=== PATIENT | female | born 1985 | race African-American/Black ===

== ENCOUNTER 2020-11-06 12:08 | Inpatient (IN) | payer MEDICAID, OTHER ==
[~2020-11-06] VITALS: Ht 165.1 cm; Wt 58.4 kg
[2020-11-06 13:29] LABS: Basophils # (auto) 0 10 ^3/uL (0-0.2); Basophils % (auto) 0.6 % (0.0-2.0); Eosinophils # (auto) 0 10 ^3/uL (0-0.8); Hematocrit 23.9 % (36.0-46.0); Hemoglobin 7.8 g/dL (12.2-16.2); Lymphocytes # (auto) 0.7 10 ^3/uL (0.4-5.4); Lymphocytes % (auto) 19.4 % (10.0-50.0); Mean Corpuscular Hemoglobin 32.9 pg (28.0-32.0); Mean Corpuscular Hgb Conc. 32.7 g/dL (32.0-36.0); Mean Corpuscular Volume 100.5 fL (80.0-100.0); Monocytes # (auto) 0.2 10 ^3/uL (0-1.3); Monocytes % (auto) 5.1 % (0.0-12.0); Neutrophils # (auto) 2.8 10 ^3/uL (1.6-8.6); Neutrophils % (auto) 73.9 % (37.0-80.0); Red Blood Cells 2.38 10^6/uL (4.0-5.20); White Blood Cell 3.8 10^3/uL (4.4-10.8)
[2020-11-06 13:45] LABS: Albumin 2.9 g/dL (3.4-5.0); Calcium 7.9 mg/dL (8.5-10.1); Magnesium 2.5 mg/dL (1.6-2.6); Potassium 3.8 mmol/L (3.5-5.1)
[2020-11-06 13:49] LABS: BUN/Creatinine Ratio 8.5; Bilirubin, Total 0.6 mg/dL (0.2-1.0); Total Protein 7.2 g/dL (6.4-8.2)
[2020-11-06] MEDS ORDERED: FUROSEMIDE 40 MG/4 ML VIAL IV ONE (14:45)
[2020-11-06] MEDS ORDERED: NITROGLYCERIN 0.4 MG SL TAB SL PRN (15:15)
[2020-11-06] MEDS ORDERED: MORPHINE SULFATE INJECTION 2 MG/ML SYRG IV PRN (15:15)
[2020-11-06] MEDS ORDERED: LORazepam 2MG/ML-1ML VIAL ONE (17:51)
[2020-11-06] MEDS ORDERED: ONDANSETRON HCL 4 MG/2 ML VIAL IV ONE (18:30)
[2020-11-06] MEDS ORDERED: MORPHINE SULFATE 4 MG/ML SYR/VIAL IV ONE (18:30)
[2020-11-06] MEDS ORDERED: ASPirin-EC 325mg tab PO ONE (18:30)
[2020-11-06] MEDS: MORPHINE SULFATE INJECTION 2 MG/ML SYRG IV PRN (23:07)
[2020-11-07] VITALS (7 sets, daily range): BP systolic 158–184; BP diastolic 78–97
[2020-11-07] MEDS: MORPHINE SULFATE INJECTION 2 MG/ML SYRG IV PRN ×3 (03:34→21:15)
[2020-11-07 07:09] LABS: Basophils # (auto) 0 10 ^3/uL (0-0.2); Basophils % (auto) 0.4 % (0.0-2.0); Eosinophils # (auto) 0.1 10 ^3/uL (0-0.8); Eosinophils % (auto) 1.9 % (0.0-7.0); Hematocrit 22.5 % (36.0-46.0); Hemoglobin 7.6 g/dL (12.2-16.2); Lymphocytes # (auto) 1.1 10 ^3/uL (0.4-5.4); Lymphocytes % (auto) 38.5 % (10.0-50.0); Mean Corpuscular Hemoglobin 34.3 pg (28.0-32.0); Mean Corpuscular Volume 100.7 fL (80.0-100.0); Monocytes # (auto) 0.2 10 ^3/uL (0-1.3); Neutrophils # (auto) 1.4 10 ^3/uL (1.6-8.6); Neutrophils % (auto) 50.2 % (37.0-80.0); Nucleated Red Blood Cells % 0.1 %; Red Blood Cells 2.23 10^6/uL (4.0-5.20); Red Cell Distribution Width 13.9 % (11.8-14.3); White Blood Cell 2.8 10^3/uL (4.4-10.8)
[2020-11-07 07:17] LABS: Potassium 3.8 mmol/L (3.5-5.1)
[2020-11-07 07:26] LABS: Albumin 2.9 g/dL (3.4-5.0); BUN/Creatinine Ratio 9.5; Bilirubin, Total 0.5 mg/dL (0.2-1.0); Calcium 8.5 mg/dL (8.5-10.1)
[2020-11-07] MEDS: ONDANSETRON HCL 4 MG/2 ML VIAL IV PRN ×2 (10:47→21:50)
[2020-11-07] MEDS: hydrALAZINE HCL 20 MG/ML VL IV PRN ×2 (12:15→21:54)
[2020-11-07] MEDS ORDERED: CLON0.1T PO (13:01)
[2020-11-07] MEDS ORDERED: LISI-716 PO (13:01)
[2020-11-07] MEDS ORDERED: NIFE1TAB30 PO (13:01)
[2020-11-07] MEDS ORDERED: CARV6.2551 PO (13:01)
[2020-11-07] MEDS ORDERED: INSU1INJ19 SC (13:01)
[2020-11-07] MEDS ORDERED: CYCL-839 PO (13:01)
[2020-11-07] MEDS ORDERED: ONDA-144 PO (13:01)
[2020-11-07] MEDS ORDERED: FURO20TA3 PO (13:02)
[2020-11-07] MEDS ORDERED: CLOP75TA70 PO (13:02)
[2020-11-07] MEDS ORDERED: DICY20TA PO (13:02)
[2020-11-07] MEDS ORDERED: METO-158 PO (13:02)
[2020-11-07] MEDS ORDERED: PHE100C PO (13:02)
[2020-11-07] MEDS ORDERED: DIPH-599 PO (13:02)
[2020-11-07] MEDS ORDERED: METO10TA3 PO (13:02)
[2020-11-07] MEDS ORDERED: SEVE800T8 PO (13:02)
[2020-11-07] MEDS ORDERED: ATOR20TA50 PO (13:02)
[2020-11-07] MEDS ORDERED: [UNRECOGNIZED DRUG - CODE] PO (13:02)
[2020-11-07] MEDS ORDERED: ONDANSETRON HCL 4 MG/2 ML VIAL IM ONE (13:15)
[2020-11-07] MEDS ORDERED: MORPHINE SULFATE 4 MG/ML SYR/VIAL IV ONE (13:15)
[2020-11-07] MEDS ORDERED: METOCLOPRAMIDE HCL 10 MG TAB PO PRN (13:30)
[2020-11-07] MEDS ORDERED: diphenhdrAMINE HCL 25 MG CAP PO PRN (13:30)
[2020-11-07] MEDS: HYOSCYAMINE SULF 0.125 MG ODT TAB PO PRN (13:40)
[2020-11-07] MEDS: LACTULOSE 20Gm/30ML SOLN PO PRN (13:41)
[2020-11-07] MEDS ORDERED: ONDANSETRON HCL 4 MG/2 ML VIAL IV ONE (13:45)
[2020-11-07] MEDS: cloNIDine HCL 0.1 MG TAB PO SCH ×2 (14:22→21:15)
[2020-11-07] MEDS ORDERED: ACCU-CHEK COMFORT CURVE STRIP VI ONE (17:00)
[2020-11-07] MEDS: HYDROcodone-ACET 10/325MG TAB PO PRN (17:28)
[2020-11-07] MEDS: PHENYTOIN SODIUM 100 MG CAP PO SCH (21:04)
[2020-11-07] MEDS: ATORVASTATIN 20 MG TAB PO SCH (21:04)
[2020-11-08 05:00] VITALS: BP 157/89
[2020-11-08] MEDS: ONDANSETRON HCL 4 MG/2 ML VIAL IV PRN ×5 (05:03→21:26)
[2020-11-08] MEDS: MORPHINE SULFATE INJECTION 2 MG/ML SYRG IV PRN ×5 (05:05→23:00)
[2020-11-08] MEDS: cloNIDine HCL 0.1 MG TAB PO SCH ×3 (05:06→21:40)
[2020-11-08 08:00] VITALS: BP 151/93
[2020-11-08] MEDS: PHENYTOIN SODIUM 100 MG CAP PO SCH ×2 (09:30→21:26)
[2020-11-08] MEDS: FUROSEMIDE 20 MG TAB PO SCH (09:30)
[2020-11-08] MEDS: LISINOPRIL 10 MG TAB PO SCH (09:31)
[2020-11-08] MEDS ORDERED: METOPROLOL TARTRATE 50 MG TAB PO SCH (10:00)
[2020-11-08] MEDS ORDERED: CLOPIDOGREL BISULFATE 75 MG TAB PO SCH (10:00)
[2020-11-08 10:03] LABS: Basophils # (auto) 0 10 ^3/uL (0-0.2); Eosinophils # (auto) 0.1 10 ^3/uL (0-0.8); Hematocrit 23.3 % (36.0-46.0); Hemoglobin 7.9 g/dL (12.2-16.2); Lymphocytes # (auto) 0.6 10 ^3/uL (0.4-5.4); Lymphocytes % (auto) 14.1 % (10.0-50.0); Mean Corpuscular Hemoglobin 34.4 pg (28.0-32.0); Mean Corpuscular Volume 100.9 fL (80.0-100.0); Monocytes # (auto) 0.3 10 ^3/uL (0-1.3); Neutrophils # (auto) 3.4 10 ^3/uL (1.6-8.6); Nucleated Red Blood Cells % 0.1 %; Red Blood Cells 2.31 10^6/uL (4.0-5.20); White Blood Cell 4.4 10^3/uL (4.4-10.8)
[2020-11-08 10:05] LABS: Basophils % (auto) 0.4 % (0.0-2.0); Eosinophils % (auto) 1.4 % (0.0-7.0); Mean Corpuscular Hgb Conc. 34.1 g/dL (32.0-36.0); Neutrophils % (auto) 77.1 % (37.0-80.0)
[2020-11-08 10:47] LABS: Albumin 3.1 g/dL (3.4-5.0); Calcium 8.3 mg/dL (8.5-10.1)
[2020-11-08 10:52] LABS: BUN/Creatinine Ratio 9.5; Bilirubin, Total 0.4 mg/dL (0.2-1.0); Total Protein 7.3 g/dL (6.4-8.2)
[2020-11-08 12:00] VITALS: BP 155/77
[2020-11-08] MEDS: LACTULOSE 20Gm/30ML SOLN PO PRN ×2 (14:07→22:07)
[2020-11-08] MEDS ORDERED: DEXTROSE (50%) 50ML SYRG IV ONE ×2 (15:30→16:00)
[2020-11-08 16:00] VITALS: BP 145/80
[2020-11-08] MEDS ORDERED: InsuLIN REG 1unit/0.01ml Soln (100units/ml) SC ONE (17:00)
[2020-11-08] MEDS ORDERED: ACCU-CHEK COMFORT CURVE STRIP VI ONE (17:00)
[2020-11-08] MEDS: PANTOPRAZOLE 40 MG/10 ML VIAL INJ IV SCH (21:25)
[2020-11-08] MEDS: ATORVASTATIN 20 MG TAB PO SCH (21:26)
[2020-11-08 21:58] VITALS: BP 163/85
[2020-11-08] MEDS: LORazepam 2MG/ML-1ML VIAL IV PRN (23:00)
[2020-11-08] MEDS ORDERED: LORazepam 2MG/ML-1ML VIAL ONE (23:09)
[2020-11-08 23:15] VITALS: BP 122/82
[2020-11-08] MEDS ORDERED: LORazepam 2MG/ML-1ML VIAL IV ONE (23:30)
[2020-11-09] MEDS ORDERED: PHENYTOIN IV DILANTIN 500 MG in SODIUM CHL 0.9% 100 ML IV ONE (00:45)
[2020-11-09] MEDS ORDERED: PHENYTOIN SODIUM 50 MG/ML 2ML VIAL IV ONE ×2 (01:13→01:15)
[2020-11-09 05:16] VITALS: BP 149/85
[2020-11-09] MEDS: cloNIDine HCL 0.1 MG TAB PO SCH ×3 (05:58→22:52)
[2020-11-09] MEDS: LACTULOSE 20Gm/30ML SOLN PO PRN (06:21)
[2020-11-09] MEDS: ONDANSETRON HCL 4 MG/2 ML VIAL IV PRN (08:19)
[2020-11-09 08:52] VITALS: BP 149/82
[2020-11-09] MEDS: PHENYTOIN SODIUM 100 MG CAP PO SCH (09:57)
[2020-11-09] MEDS: LISINOPRIL 10 MG TAB PO SCH (13:34)
[2020-11-09] MEDS: METOPROLOL TARTRATE 50 MG TAB PO SCH ×2 (13:35→22:58)
[2020-11-09] MEDS: FUROSEMIDE 20 MG TAB PO SCH (13:35)
[2020-11-09] MEDS: PANTOPRAZOLE 40 MG/10 ML VIAL INJ IV SCH ×3 (15:40→22:52)
[2020-11-09] MEDS: METOCLOPRAMIDE HCL 5MG/ml INJ 2ml VIAL IV SCH ×2 (16:54→22:52)
[2020-11-09] MEDS: HYOSCYAMINE SULF 0.125 MG ODT TAB PO PRN (16:55)
[2020-11-09] MEDS: hydrALAZINE HCL 20 MG/ML VL IV PRN (16:55)
[2020-11-09 17:00] VITALS: BP 193/100
[2020-11-09] MEDS: MORPHINE SULFATE INJECTION 2 MG/ML SYRG IV PRN (18:13)
[2020-11-09 22:00] VITALS: BP 188/96
[2020-11-09] MEDS: ATORVASTATIN 20 MG TAB PO SCH (22:52)
[2020-11-10] VITALS (8 sets, daily range): BP systolic 106–208; BP diastolic 58–108
[2020-11-10 05:57] LABS: Basophils # (auto) 0 10 ^3/uL (0-0.2); Basophils % (auto) 0.6 % (0.0-2.0); Eosinophils # (auto) 0.1 10 ^3/uL (0-0.8); Eosinophils % (auto) 1.6 % (0.0-7.0); Hematocrit 18.5 % (36.0-46.0); Lymphocytes # (auto) 0.7 10 ^3/uL (0.4-5.4); Monocytes # (auto) 0.4 10 ^3/uL (0-1.3); Neutrophils # (auto) 2.6 10 ^3/uL (1.6-8.6)
[2020-11-10 06:00] LABS: Mean Corpuscular Hgb Conc. 34.4 g/dL (32.0-36.0); Mean Corpuscular Volume 101.7 fL (80.0-100.0); Monocytes % (auto) 10.6 % (0.0-12.0); Neutrophils % (auto) 68.2 % (37.0-80.0); Nucleated Red Blood Cells % 0.3 %; Red Blood Cells 1.82 10^6/uL (4.0-5.20); Red Cell Distribution Width 13.8 % (11.8-14.3); White Blood Cell 3.8 10^3/uL (4.4-10.8)
[2020-11-10] MEDS: cloNIDine HCL 0.1 MG TAB PO SCH ×3 (06:01→23:39)
[2020-11-10] MEDS: METOCLOPRAMIDE HCL 5MG/ml INJ 2ml VIAL IV SCH ×3 (06:01→23:36)
[2020-11-10] MEDS: HYDROcodone-ACET 10/325MG TAB PO PRN (06:01)
[2020-11-10 06:17] LABS: Albumin 2.7 g/dL (3.4-5.0); Calcium 7.9 mg/dL (8.5-10.1); Potassium 4.1 mmol/L (3.5-5.1)
[2020-11-10 06:21] LABS: BUN/Creatinine Ratio 6.6; Bilirubin, Total 0.4 mg/dL (0.2-1.0); Total Protein 6.3 g/dL (6.4-8.2)
[2020-11-10 06:37] LABS: Hemoglobin 6.3 g/dL (12.2-16.2)
[2020-11-10] MEDS ORDERED: DEXTROSE (50%) 50ML SYRG IV ONE (08:30)
[2020-11-10] MEDS: PANTOPRAZOLE 40 MG/10 ML VIAL INJ IV SCH ×2 (09:03→23:35)
[2020-11-10] MEDS: PSYLLIUM PWD 5.8GM PKG PO SCH (09:04)
[2020-11-10] MEDS: METOPROLOL TARTRATE 50 MG TAB PO SCH ×2 (09:15→23:39)
[2020-11-10] MEDS: LISINOPRIL 10 MG TAB PO SCH (09:16)
[2020-11-10] MEDS: FUROSEMIDE 20 MG TAB PO SCH (09:16)
[2020-11-10] MEDS ORDERED: ACCU-CHEK COMFORT CURVE STRIP VI ONE (11:30)
[2020-11-10] MEDS ORDERED: InsuLIN REG 1unit/0.01ml Soln (100units/ml) SC ONE (11:30)
[2020-11-10] MEDS: MORPHINE SULFATE INJECTION 2 MG/ML SYRG IV PRN ×2 (15:46→23:40)
[2020-11-10] MEDS: InsuLIN REG 1unit/0.01ml Soln (100units/ml) SC SCH (17:00)
[2020-11-10] MEDS ORDERED: DEXTROSE (50%) 50ML SYRG IV PRN (17:00)
[2020-11-10] MEDS: ACCU-CHEK COMFORT CURVE STRIP VI SCH ×2 (17:17→23:36)
[2020-11-10] MEDS: ATORVASTATIN 20 MG TAB PO SCH (23:36)
[2020-11-10] MEDS: PHENYTOIN SODIUM 100 MG CAP PO SCH (23:36)
[2020-11-11] MEDS: InsuLIN REG 1unit/0.01ml Soln (100units/ml) SC SCH ×5 (00:15→22:00)
[2020-11-11 05:00] VITALS: BP 163/77
[2020-11-11] MEDS: ACCU-CHEK COMFORT CURVE STRIP VI SCH ×4 (06:38→21:44)
[2020-11-11] MEDS ORDERED: SODIUM CHL 0.9% 1000 ML BAG XX ONE (07:00)
[2020-11-11 09:00] VITALS: BP 164/87
[2020-11-11] MEDS: MORPHINE SULFATE INJECTION 2 MG/ML SYRG IV PRN ×3 (09:43→21:03)
[2020-11-11] MEDS: PANTOPRAZOLE 40 MG/10 ML VIAL INJ IV SCH ×2 (09:45→21:42)
[2020-11-11] MEDS: LISINOPRIL 10 MG TAB PO SCH (09:46)
[2020-11-11] MEDS: METOPROLOL TARTRATE 50 MG TAB PO SCH ×2 (09:46→21:43)
[2020-11-11] MEDS: FUROSEMIDE 20 MG TAB PO SCH (09:46)
[2020-11-11] MEDS: PSYLLIUM PWD 5.8GM PKG PO SCH (09:58)
[2020-11-11] MEDS: HYDROcodone-ACET 10/325MG TAB PO PRN ×2 (12:05→18:00)
[2020-11-11 12:27] LABS: Basophils # (auto) 0 10 ^3/uL (0-0.2); Basophils % (auto) 0.3 % (0.0-2.0); Eosinophils # (auto) 0.1 10 ^3/uL (0-0.8); Eosinophils % (auto) 1.8 % (0.0-7.0); Hematocrit 24.7 % (36.0-46.0); Hemoglobin 8.5 g/dL (12.2-16.2); Lymphocytes # (auto) 0.5 10 ^3/uL (0.4-5.4); Lymphocytes % (auto) 10.4 % (10.0-50.0); Mean Corpuscular Hemoglobin 33.3 pg (28.0-32.0); Mean Corpuscular Hgb Conc. 34.3 g/dL (32.0-36.0); Mean Corpuscular Volume 96.9 fL (80.0-100.0); Monocytes # (auto) 0.4 10 ^3/uL (0-1.3); Monocytes % (auto) 8.8 % (0.0-12.0); Neutrophils # (auto) 3.8 10 ^3/uL (1.6-8.6); Neutrophils % (auto) 78.7 % (37.0-80.0); Nucleated Red Blood Cells % 0.2 %; Red Blood Cells 2.55 10^6/uL (4.0-5.20); Red Cell Distribution Width 15.7 % (11.8-14.3); White Blood Cell 4.8 10^3/uL (4.4-10.8)
[2020-11-11 12:45] LABS: BUN/Creatinine Ratio 4.6; Calcium 8.3 mg/dL (8.5-10.1); Potassium 3.3 mmol/L (3.5-5.1)
[2020-11-11] MEDS: hydrALAZINE HCL 20 MG/ML VL IV PRN (12:47)
[2020-11-11 13:00] VITALS: BP 196/105
[2020-11-11 13:45] VITALS: BP 154/93
[2020-11-11] MEDS: cloNIDine HCL 0.1 MG TAB PO SCH ×2 (14:00→21:44)
[2020-11-11] MEDS: METOCLOPRAMIDE HCL 5MG/ml INJ 2ml VIAL IV SCH ×2 (14:00→21:42)
[2020-11-11] MEDS: amLODIPine BESYLATE 5 MG TAB PO SCH (14:52)
[2020-11-11] MEDS ORDERED: POTASSIUM CHL 20 Meq TABLET PO ONE (15:45)
[2020-11-11 17:20] VITALS: BP 136/63
[2020-11-11] MEDS ORDERED: EPOETIN ALFA-EPBX 10,000 UNIT/1ML VIAL SC ONE (21:00)
[2020-11-11] MEDS: ONDANSETRON HCL 4 MG/2 ML VIAL IV PRN (21:12)
[2020-11-11] MEDS: PHENYTOIN SODIUM 100 MG CAP PO SCH (21:43)
[2020-11-11] MEDS: ATORVASTATIN 20 MG TAB PO SCH (21:43)
[2020-11-11] MEDS ORDERED: OXYCODONE W/ ACETAMINOPHEN 5/325MG TABLET PO PRN (21:45)
[2020-11-11 22:00] VITALS: BP 169/99
[2020-11-12] MEDS: LORazepam 2MG/ML-1ML VIAL IV PRN (00:25)
[2020-11-12 05:00] VITALS: BP 157/72
[2020-11-12] MEDS: METOCLOPRAMIDE HCL 5MG/ml INJ 2ml VIAL IV SCH ×2 (06:30→14:00)
[2020-11-12] MEDS: cloNIDine HCL 0.1 MG TAB PO SCH ×2 (06:30→14:48)
[2020-11-12] MEDS: InsuLIN REG 1unit/0.01ml Soln (100units/ml) SC SCH ×2 (06:52→11:56)
[2020-11-12] MEDS: ACCU-CHEK COMFORT CURVE STRIP VI SCH ×2 (06:52→11:50)
[2020-11-12 08:00] VITALS: BP 146/76
[2020-11-12 09:00] VITALS: BP 146/76
[2020-11-12] MEDS: PSYLLIUM PWD 5.8GM PKG PO SCH (09:31)
[2020-11-12] MEDS: PANTOPRAZOLE 40 MG/10 ML VIAL INJ IV SCH (09:32)
[2020-11-12] MEDS: amLODIPine BESYLATE 5 MG TAB PO SCH (09:33)
[2020-11-12] MEDS: LISINOPRIL 10 MG TAB PO SCH (09:34)
[2020-11-12] MEDS: FUROSEMIDE 20 MG TAB PO SCH (09:34)
[2020-11-12] MEDS: METOPROLOL TARTRATE 50 MG TAB PO SCH (09:35)
[2020-11-12] MEDS: hydrALAZINE HCL 20 MG/ML VL IV PRN (11:57)
[2020-11-12] MEDS: MORPHINE SULFATE INJECTION 2 MG/ML SYRG IV PRN (12:06)
[2020-11-12] MEDS ORDERED: LORazepam 2MG/ML-1ML VIAL IM PRN (14:15)
[2020-11-12 15:08] VITALS: BP 150/90
[2020-11-12] MEDS ORDERED: POTASSIUM CHL 20 Meq TABLET PO ONE (16:15)
[2020-11-13] MEDS ORDERED: SODIUM CHL 0.9% 1000 ML BAG XX ONE (07:00)
[2020-11-13] MEDS ORDERED: CLOPIDOGREL BISULFATE 75 MG TAB PO SCH (10:00)
[2020-11-13] MEDS ORDERED: EPOETIN ALFA-EPBX 10,000 UNIT/1ML VIAL SC ONE (21:00)
== END 2020-11-12 16:30 | disposition home or self-care (01) | DRG 254 ==
LOC: ER 12:11 → TELE 15:15 → TELE-WESTW 11-07 01:05
PROVIDERS: ADMIT Internal Medicine; ATTEND Internal Medicine
PROC: 05H933Z Insertion of Infusion Device into Right Brachial Vein, Percutaneous Approach (ICD-10-PCS; 2020-11-09)
PROC: B54MZZA Ultrasonography of Right Upper Extremity Veins, Guidance (ICD-10-PCS; 2020-11-09)
PROC: 5A1D70Z Performance of Urinary Filtration, Intermittent, Less than 6 Hours Per Day (ICD-10-PCS; 2020-11-09)
PROC: 30233N1 Transfusion of Nonautologous Red Blood Cells into Peripheral Vein, Percutaneous Approach (ICD-10-PCS; principal; 2020-11-10)
PROC: 5A1D70Z Performance of Urinary Filtration, Intermittent, Less than 6 Hours Per Day (ICD-10-PCS; 2020-11-11)
DX: K59.03 Drug induced constipation (principal); E87.2 Acidosis; N18.6 End stage renal disease; E44.0 Moderate protein-calorie malnutrition; E11.43 Type 2 diabetes mellitus with diabetic autonomic (poly)neuropathy; G40.409 Other generalized epilepsy and epileptic syndromes, not intractable, without status epilepticus; K31.84 Gastroparesis; D64.9 Anemia, unspecified; E78.5 Hyperlipidemia, unspecified; I50.9 Heart failure, unspecified; I16.0 Hypertensive urgency; Z20.822 Contact with and (suspected) exposure to COVID-19; F12.90 Cannabis use, unspecified, uncomplicated; F17.210 Nicotine dependence, cigarettes, uncomplicated; F31.9 Bipolar disorder, unspecified; F43.10 Post-traumatic stress disorder, unspecified; G89.29 Other chronic pain; I25.10 Atherosclerotic heart disease of native coronary artery without angina pectoris; T40.605A Adverse effect of unspecified narcotics, initial encounter; Z79.02 Long term (current) use of antithrombotics/antiplatelets; Z90.49 Acquired absence of other specified parts of digestive tract; Z95.5 Presence of coronary angioplasty implant and graft; Z99.2 Dependence on renal dialysis; Z88.8 Allergy status to other drugs, medicaments and biological substances; Z68.21 Body mass index [BMI] 21.0-21.9, adult
CPT/HCPCS: 36415; 36600; 51702; 70450; 71045; 74176; 80048; 80053; 80185; 82270; 82805; 82962; 83605; 83690; 83735; 83880; 84146; 84484; 85025; 86850; 86900; 86901; 86920; 87040; 87426; 90935; 93005; 93306; 95819; 96374; 96375; C9113; G0378; J1815; J2405